=== PATIENT | male | born 1975 | race African-American/Black ===

== ENCOUNTER 2016-07-26 00:36 | Emergency (ER) | payer SELFPAY ==
[~2016-07-26] VITALS: Ht 188 cm; Wt 100.0 kg
[~2016-07-26 00:36] MED LIST: CLIN1CAP6 PO; HYDR-3533 PO
--- NOTE | 2016-07-26 01:15 | PD ---
HPI Chief Complaint: Code Blue Time Seen by Provider: 00:45 Travel History International Travel<30 days: No Contact w/Intl Traveler<30days: No Traveled to known affect area: No History of Present Illness HPI 41 yo Arrives as a cardiac arrest. He was found in a gas station bathroom unresponsive and asystolic GCS 3 with fixed dilated pupils. ACLS protocol initiated. Patient intubated. He received 2 rounds of epinephrine, 50 mEq of bicarbonate and 2 mg of naloxone. EMS performed CPR for approximately 30 minutes prior to ER arrival. EMS notes a track [place]/linear lesions in the antecubital fossa on the right side. Upon arrival to the ER the patient was found to be pulseless with a GCS of 3T. Breath sounds confirmed in both lungs by RT. Transxiphoid view of the heart revealed akinesis globally. The patient was pronounced at 12:34 AM. Chest compression fraction greater than 60% throughout ER stay. Time of entrance to the bathroom unknown with unknown time of asystole prior to EMS arrival. PFSH Past Medical History Arthritis: No Heart Rhythm Problems: No Cancer: No Cardiovascular Problems: Yes High Cholesterol: No Chest Pain: Yes Congestive Heart Failure: No Cerebrovascular Accident: No Endocrine: No Genitourinary: No Hiatal Hernia: No Immune Disorder: No Musculoskeletal: Yes Neurologic: No Psychiatric: No Reproductive: No Respiratory: No Migraines: No Seizures: No Past Surgical History Abdominal Surgery: No AICD: No Arteriovenous Shunt: No Cardiac Surgery: No Ear Surgery: No Endocrine Surgery: No Eye Surgery: No Genitourinary Surgery: No Gynecologic Surgery: No Insulin Pump: No Joint Replacement: Yes Oral Surgery: No Pacemaker: No Thoracic Surgery: No Social History Alcohol Use: Yes (OCC BEER) Tobacco Use: Yes (PPD) Substance Use: No Allergies-Medications (Allergen,Severity, Reaction): Coded Allergies: No Known Allergies (Verified , 05/17/15) Reported Meds & Prescriptions Reported Meds & Active Scripts Active Clindamycin Hcl (Clindamycin HCl) 300 Mg Cap 300 Mg PO QID 10 Days Lortab 5 mg/325 mg (Hydrocodone/Acetaminophen 5 mg/325 mg) 1 Tab 1 Tab PO Q6H PRN Review of Systems ROS Limitations: Clinical Condition, Intoxication Physical Exam Narrative GENERAL: 41-year-old male unresponsive intubated SKIN: Warm and dry. IV drug abuse linear lesions in the antecubital fossa on the right side. HEAD: Atraumatic. Normocephalic. EYES: Fixed dilated. ENT: No nasal bleeding or discharge. Mucous membranes pink and moist. NECK: Trachea midline. No JVD. CARDIOVASCULAR: No pulse. RESPIRATORY intubated. Breath sounds present bilaterally with ventilation. Copious bright red blood in the endotracheal tube. GASTROINTESTINAL: Abdomen soft, non-tender, nondistended. Hepatic and splenic margins not palpable. MUSCULOSKELETAL: No obvious deformities. No clubbing. No cyanosis. No edema. NEUROLOGICAL: GCS 3T. Pupils fixed/dilated. PSYCHIATRIC: Unable to assess. MDM Medical Decision Making Medical Screen Exam Complete: Yes Emergency Medical Condition: Yes Medical Record Reviewed: Yes Differential Diagnosis Cardiopulmonary arrest, hypoxic respiratory failure followed by them multiorgan failure, anoxic brain injury, opioid overdose, PE, 5T's, 5 H's Narrative Course Please refer to the history of present illness. Time of 0034. resource room teacher notified patient's mother shortly after he time of . Procedures Procedure Narrative Trans-xiphoid view of the heart revealed akinesis. Diagnosis Primary Impression: Additional Instructions: not applicable Med/Other Pt SpecificInfo: Other ( patient) Disposition: 20 Condition: Stable Boby Holder MD Jul 26, 2016 01:15
[2016-07-26] MEDS ORDERED: EPINEPHrine HCL (1:10,000) 1 MG/10 ML SYRINGE IV ONE (05:00)
== END 2016-07-26 03:12 | disposition expired ==
LOC: NEPE 00:36
DX: I46.9 Cardiac arrest, cause unspecified (principal); F17.210 Nicotine dependence, cigarettes, uncomplicated
CPT/HCPCS: 99285; J0171